=== PATIENT | female | born 1965 | race American Indian/Alaskan Native ===

== ENCOUNTER 2017-09-12 07:46 | Outpatient (CLI) | payer OTHER ==
--- NOTE | 2017-09-12 16:29 | Mammography Report ---
BILATERAL DIGITAL SCREENING MAMMOGRAM with CAD: 09/12/17 07:46:00 CLINICAL: Routine screening. COMPARISON:None. She doesn't remember where she previously had a mammogram. FINDINGS: The breasts are almost entirely fatty. A right upper outer circumscribed focal asymmetry requires additional imaging.No architectural distortion or suspicious calcifications.The left breast is negative. IMPRESSION: Right focal asymmetry requiring further workup. BI-RADS CATEGORY: 0 -- Additional Imaging Evaluation Required RECOMMENDATION: Recall for right MLO and exaggerated CC spot magnification views and ultrasound if needed. ACR BI-RADS MAMMOGRAPHIC CODES: 0 = Needs additional imaging evaluation; 1 = Negative; 2 = Benign; 3 = Probably benign; 4 = Suspicious; 5 = Malignant; 6 = Known biopsy-proven malignancy COMMENT: 1. Dense breast tissue, i.e., adenosis, fibrocystic changes, etc., may obscure an underlying neoplasm. 2. Approximately 10% of cancers are not detected with mammography. 3. A negative mammography report should not delay biopsy if a clinically suspicious mass is present. COMMENT: Patient follow-up letters are generated via our [employer] application.
== END 2017-09-12 07:47 | disposition home or self-care (01) ==
LOC: MAMMO 07:46
DX: Z12.31 Encounter for screening mammogram for malignant neoplasm of breast (principal)
CPT/HCPCS: 77067

== ENCOUNTER 2017-10-01 08:12 | Outpatient (CLI) | payer OTHER ==
--- NOTE | 2017-10-01 08:43 | Mammography Report ---
RIGHT DIGITAL DIAGNOSTIC MAMMOGRAM : 10/01/17 08:12:00 CLINICAL: Recalled for asymmetry. COMPARISON:09/12/17 screening FINDINGS: Additional mammographic views were performed and are negative.ML and MLO and magnification views demonstrate a benign intramammary lymph node approximately 18 cm from the nipple measuring 6 mm. IMPRESSION: A benign intramammary lymph node and no suspicious finding. BI-RADS CATEGORY: 2 - - Benign RECOMMENDATION: Routine mammographic screening in one year. ACR BI-RADS MAMMOGRAPHIC CODES: 0 = Needs additional imaging evaluation; 1 = Negative; 2 = Benign; 3 = Probably benign; 4 = Suspicious; 5 = Malignant; 6 = Known biopsy-proven malignancy COMMENT: 1. Dense breast tissue, i.e., adenosis, fibrocystic changes, etc., may obscure an underlying neoplasm. 2. Approximately 10% of cancers are not detected with mammography. 3. A negative mammography report should not delay biopsy if a clinically suspicious mass is present. COMMENT: Patient follow-up letters are generated via our [employer] application.
== END 2017-10-01 08:13 | disposition home or self-care (01) ==
LOC: MAMMO 08:12
DX: N63.10 Unspecified lump in the right breast, unspecified quadrant (principal); Z91.011 Allergy to milk products; Z88.8 Allergy status to other drugs, medicaments and biological substances; Z91.010 Allergy to peanuts; Z91.018 Allergy to other foods; Z91.013 Allergy to seafood

== ENCOUNTER 2021-11-27 11:53 | Outpatient (CLI) | payer OTHER ==
--- NOTE | 2021-11-28 09:14 | Mammography Report ---
DIGITAL SCREENING MAMMOGRAM WITH CAD, 11/27/2021 CLINICAL INFORMATION / INDICATION: Routine screening mammography. SCREENING MAMMOGRAM Z12.31 TECHNIQUE: Digital bilateral 2D mammography was obtained in the craniocaudal and mediolateral obliqu e projections. This examination was interpreted with the benefit of Computer-Aided Detection analysis . COMPARISON: 09/12/2017 FINDINGS: Breast Density: The breasts are almost entirely fatty. No dominant mass, suspicious calcifications, or architectural distortion in either breast. IMPRESSION: No mammographic evidence of malignancy. Follow up recommendation: Routine yearly screening mammogram. Clinical correlation is recommended reg arding the patient's complaint of nipple pain. BI-RADS Category 1: NEGATIVE A "normal" or negative report should not discourage follow up or biopsy of a clinically significant f inding. A written summary of these findings will be mailed to the patient. The patient will be entered into a mammography reporting system which will generate a reminder letter for the patient's next appointmen t at the appropriate interval. The [employer] recommends yearly mammograms starting at age 40 and continuing as l daniele as a woman is in good health. Breast MRI is recommended for women with an approximate 20-25% or greater lifetime risk of breast cancer, including women with a strong family history of breast or ova christa cancer or who have been treated for Hodgkin's disease. Signer Name: Alejandro Lee MD Signed: 11/28/2021 9:10 AM Workstation Name: [id number]
== END 2021-11-27 11:54 | disposition home or self-care (01) ==
LOC: MAMMO 11:53
PROVIDERS: ATTEND Internal Medicine
DX: Z12.31 Encounter for screening mammogram for malignant neoplasm of breast (principal)
CPT/HCPCS: 77067